=== PATIENT | male | born 1935 | race African-American/Black ===

== ENCOUNTER 2023-03-25 13:53 | Emergency (ER) | payer OTHER, MEDICAID ==
[~2023-03-25] VITALS: Ht 172.7 cm; Wt 59.0 kg
[2023-03-25] MEDS ORDERED: METHYLPREDNISOLONE SOD SUCC 125MG/2ML (ACT-O-VIAL) IV STA (14:05)
[2023-03-25] MEDS ORDERED: ALBUTEROL (0.083%) 2.5MG/3ML NEB HHN STA (14:05)
[2023-03-25] MEDS ORDERED: FAMOTIDINE 20MG/2ML VIAL IV ONE (14:15)
[2023-03-25] MEDS ORDERED: SODIUM CHLORIDE 0.9% 1,000 ML IV ONE (14:15)
[2023-03-25] MEDS ORDERED: DIPHENHYDRAMINE 50MG/ML VIAL IV ONE (14:15)
[2023-03-25 15:30] LABS: BASOPHILS % 0.2 % (0.0-2.0); EOSINOPHILS % 0.3 % (0.0-5.0); HEMATOCRIT. 47.1 % (42.0-52.0); HEMOGLOBIN. 15.5 g/dL (14.0-18.0); LYMPHOCYTES % 14.8 % (20.0-50.0); MEAN CORPUSCULAR HEMOGLOBIN 30.6 pg (28.0-32.0); MEAN CORPUSCULAR HGB CONC 32.9 g/dL (31.0-37.0); MEAN CORPUSCULAR VOLUME 93.1 fL (80.0-94.0); MEAN PLATELET VOLUME 8.3 fl (7.4-10.4); MONOCYTES % 6.7 % (2.0-8.0); PLATELET 141 x1000/uL (130-400); RED BLOOD CELL COUNT 5.06 mill/uL (4.7-6.1); RED CELL DISTRIBUTION WIDTH 15.7 % (11.6-14.6); WHITE BLOOD COUNT 8.3 x1000/uL (4.5-11.0)
[2023-03-25 15:35] VITALS: PULSE 75; RESP 14; O2SAT 97
[2023-03-25 15:37] LABS: CHLORIDE 107 mEq/L (98-107); INDEX HEMOLYSI 6 (1-3); INDEX ICTERIC 1 (1-4); INDEX LIPEMIC 1 (1-3); SODIUM 137 mEq/L (136-145)
[2023-03-25 15:46] LABS: ALANINE AMINOTRANSFERASE 32 IU/L (13-61); ALBUMIN 3.3 g/dL (3.4-5.0); ASPARTATE AMINOTRANSFERASE 53 IU/L (15-37); BILIRUBIN TOTAL 0.6 mg/dL (0.1-1.0); CALCIUM 8.9 mg/dL (8.5-10.1); CARBON DIOXIDE 26 mEq/L (21-32); CREATININE 1.2 mg/dL (0.6-1.3); GLUCOSE 135 mg/dL (70-105); NT PRO B-TYPE NATRIURETIC PEP 38 pg/mL (5-125); PROTEIN TOTAL 7.3 g/dL (6.0-8.3); TROPONIN I HIGH SENSITIVITY 7 ng/L (<78); UREA NITROGEN BLOOD 13 mg/dL (7-21)
[2023-03-25 16:26] LABS: POTASSIUM 5.9 mEq/L (3.5-5.1)
[2023-03-25 17:50] LABS: INR 1.1; PROTHROMBIN TIME 11.9 sec (9.6-11.0)
[2023-03-25 20:14] LABS: CALCIUM 8.4 mg/dL (8.5-10.1); CHLORIDE 109 mEq/L (98-107); INDEX HEMOLYSI 1 (1-3); INDEX ICTERIC 1 (1-4); INDEX LIPEMIC 1 (1-3); POTASSIUM 3.8 mEq/L (3.5-5.1); SODIUM 139 mEq/L (136-145)
[2023-03-25 20:18] LABS: CARBON DIOXIDE 24 mEq/L (21-32); CREATININE 1.1 mg/dL (0.6-1.3); GLUCOSE 168 mg/dL (70-105); UREA NITROGEN BLOOD 12 mg/dL (7-21)
[2023-03-25] MEDS ORDERED: HALOPERIDOL LACTATE 5MG/ML VIAL IM ONE (22:45)
[2023-03-26 01:14] VITALS: BP 166/70; PULSE 90; RESP 22; TEMP 98.6
== END 2023-03-26 01:29 | disposition short-term general hospital (02) ==
LOC: ER 14:43 → CANBEDREQ 18:38 → ER 03-26 01:29
DX: T78.3XXA Angioneurotic edema, initial encounter (principal); F03.90 Unspecified dementia, unspecified severity, without behavioral disturbance, psychotic disturbance, mood disturbance, and anxiety; E11.9 Type 2 diabetes mellitus without complications; I10 Essential (primary) hypertension; X58.XXXA Exposure to other specified factors, initial encounter
CPT/HCPCS: 99285; 96374; 86927; 71045; 96375; 96361; 80053; 83880; 85025; 85610; 86850; 86900; 86901; 84484; 94640; 93005; 96372; 80048; 36415; J1200; J3490; J1630; J2930; J7030; 36430; P9017

== ENCOUNTER 2023-09-15 22:14 | Inpatient (IN) | payer OTHER, MEDICAID ==
[~2023-09-15] VITALS: Ht 165.1 cm; Wt 65.8 kg
[2023-09-15 23:05] LABS: BASOPHILS % 0.2 % (0.0-2.0); DIFFERENTIAL COMMENT 0; EOSINOPHILS % 0.1 % (0.0-5.0); HEMATOCRIT. 52.2 % (42.0-52.0); HEMOGLOBIN. 16.2 g/dL (14.0-18.0); LYMPHOCYTES % 11.4 % (20.0-50.0); MEAN CORPUSCULAR HEMOGLOBIN 30.1 pg (28.0-32.0); MEAN PLATELET VOLUME 10.1 fl (7.4-10.4); MONOCYTES % 8.4 % (2.0-8.0); NEUTROPHILS % 79.9 % (40.0-76.0); PLATELET 244 x1000/uL (130-400); RED BLOOD CELL COUNT 5.39 mill/uL (4.7-6.1); WHITE BLOOD COUNT 16.5 x1000/uL (4.5-11.0)
[2023-09-16 01:20] LABS: LACTIC ACID 3.1 mmol/L (0.4-2.0)
[2023-09-16] MEDS: SODIUM CHLORIDE 0.9% 500 ML IV ONE (01:26)
[2023-09-16 01:30] LABS: AMMONIA 56 uMol/L (<32)
[2023-09-16 01:40] LABS: BG BASE EXCESS -3.1 mmol/L (-2.0-2.0); BG CARBOXYHEMOGLOBIN 0.3 % (0.5-1.5); BG DEOXYHEMOGLOBIN 0.9 % (0.0-5.0); BG FRACTION INSPIRED OXYGEN 100; BG HCO3 ACT 20.8 mmol/L (22.0-26.0); BG METHEMOGLOBIN 0.5 % (0.0-1.5); BG OXYGEN SATURATION 99.1 % (92.0-98.5); BG OXYHEMOGLOBIN 98.3 % (94.0-97.0); BG PCO2 34.3 mmHg (35.0-45.0); BG PH 7.401 (7.350-7.450); BG PO2 204.6 mmHg (75.0-100.0); BG SAMPLE SITE LEFT RADIAL; BG TOTAL HEMOGLOBIN 14.8 g/dL (12.0-18.0); BG VENT MODE MASK - NRB
[2023-09-16] MEDS: VANCOMYCIN 1G PREMIX 200 ML IV NR (04:42)
[2023-09-16] MEDS: SODIUM CHLORIDE 0.9% 1,000 ML IV NR (04:42)
[2023-09-16] MEDS ORDERED: SODIUM CHLORIDE 0.9% 1,000 ML IV NR (05:45)
[2023-09-16] MEDS: PIPERACILLIN/TAZO 3.375G/50ML 50 ML IV NR (06:00)
[2023-09-16 06:29] LABS: CARBON DIOXIDE 22 mEq/L (21-32); CHLORIDE 127 mEq/L (98-107); GLUCOSE 185 mg/dL (70-105); POTASSIUM 4.8 mEq/L (3.5-5.1)
[2023-09-16 06:30] LABS: CREATININE 3.9 mg/dL (0.6-1.3)
[2023-09-16 06:31] LABS: ALBUMIN 3.9 g/dL (3.2-4.8); BILIRUBIN TOTAL 0.4 mg/dL (0.1-1.0); PROTEIN TOTAL 8.4 g/dL (6.0-8.3)
[2023-09-16 06:32] LABS: ALANINE AMINOTRANSFERASE 252 IU/L (10-49); ASPARTATE AMINOTRANSFERASE 157 IU/L (<34)
[2023-09-16 06:33] LABS: CREATINE KINASE 3875 IU/L (46-171); TROPONIN I HIGH SENSITIVITY 50 ng/L (3.0-53)
[2023-09-16 06:34] LABS: ETHANOL BLOOD < 10 mg/dL (<10); THYROID STIMULATING HORMONE 1.23 uIU/mL (0.55-4.78)
[2023-09-16 06:38] LABS: SODIUM 161 mEq/L (136-145); UREA NITROGEN BLOOD 115 mg/dL (9-23)
[2023-09-16 07:07] LABS: ACETAMINOPHEN < 2 ug/mL (10-30)
[2023-09-16] MEDS ORDERED: IPRATROPIUM/ALBUTEROL 0.5-3(2.5)MG/3ML NEB NEB PRN (08:45)
[2023-09-16] MEDS ORDERED: DOCUSATE SODIUM 100MG CAPSULE PO PRN (08:45)
[2023-09-16] MEDS ORDERED: ONDANSETRON HCL 4MG/2ML INJ IV PRN (08:45)
[2023-09-16] MEDS ORDERED: MAGNESIUM/ALUMINUM HYDROXIDE/SIMETHICONE 30ML UDC PO PRN (08:45)
[2023-09-16] MEDS ORDERED: ACETAMINOPHEN 325MG TABLET PO PRN (08:45)
[2023-09-16] MEDS ORDERED: CLONIDINE 0.1MG TABLET PO PRN (08:45)
[2023-09-16] MEDS ORDERED: ENOXAPARIN 40MG/0.4ML SYR SUBCUT SCH (08:45)
[2023-09-16] MEDS ORDERED: GUAIFENESIN 200MG/10ML SUGAR FREE UDC PO PRN (08:45)
[2023-09-16] MEDS ORDERED: SODIUM CHLORIDE 0.45% 1,000 ML IV SCH (08:45)
[2023-09-16] MEDS: DEXT 5%/0.45% NACL 1000ML 1,000 ML IV SCH (09:00)
[2023-09-16] MEDS: ENOXAPARIN 30MG/0.3ML SYR SUBCUT SCH (09:00)
[2023-09-16 10:08] LABS: CHOLESTEROL 106 mg/dL (<200); HDL CHOLESTEROL 44 mg/dL (>55); IRON 38 ug/dL (65-175); LDL CHOLESTEROL 27 mg/dL (5-100); T4 FREE 0.82 ng/dL (0.89-1.76); TOTAL IRON BINDING CAPACITY 563 ug/dl (250-425); TRIGLYCERIDE 90 mg/dL (0-150)
[2023-09-16 10:22] LABS: FOLIC ACID (FOLATE) SERUM 15.87 ng/mL (>5.38)
[2023-09-16 10:29] LABS: VITAMIN B12 SERUM > 2000 pg/mL (211-911)
[2023-09-16] MEDS ORDERED: PIPERACILLIN/TAZO 3.375G/50ML 50 ML IV SCH (14:00)
[2023-09-16] MEDS: PIPERACILLIN/TAZO 3.375G/50ML IV SCH (14:15)
[2023-09-16 14:55] VITALS: BP 118/65; PULSE 85; RESP 16; TEMP 97
[2023-09-16 14:56] VITALS: BP 118/65; PULSE 85; RESP 16; TEMP 97
[2023-09-16 16:00] VITALS: BP 113/60; PULSE 88; RESP 20; TEMP 97.4
[2023-09-16] MEDS: ACETAMINOPHEN 325MG TABLET PO PRN (19:12)
[2023-09-16] MEDS ORDERED: KETOROLAC 10MG TABLET PO NR (19:15)
[2023-09-16] MEDS ORDERED: NON FORMULARY PATIENT HOME MED XX SCH (19:15)
[2023-09-16 20:00] VITALS: BP 117/53; PULSE 66; RESP 18; TEMP 96.9
[2023-09-16] MEDS: IPRATROPIUM/ALBUTEROL 0.5-3(2.5)MG/3ML NEB HHN SCH (20:08)
[2023-09-16 20:22] VITALS: PULSE 80; RESP 20; O2SAT 99
[2023-09-16] MEDS: MELATONIN 3MG TABLET PO NR (21:13)
[2023-09-16] MEDS: LACTULOSE 20G/30ML UDC PO SCH (21:13)
[2023-09-16 22:43] LABS: CALCIUM 8.6 mg/dL (8.7-10.4); CREATINE KINASE MB FRACTION 10.9 ng/mL (0.5-3.6); CREATININE 2.9 mg/dL (0.6-1.3); POTASSIUM 4.2 mEq/L (3.5-5.1)
[2023-09-16 23:50] VITALS: PULSE 77; RESP 19; O2SAT 98
[2023-09-17] VITALS (9 sets, daily range): BP systolic 90–112; BP diastolic 38–51; PULSE 60–72; RESP 18–20; TEMP 96.8–97.4; O2SAT 100
[2023-09-17 08:10] LABS: HEMATOCRIT. 39.5 % (42.0-52.0); HEMOGLOBIN. 12.4 g/dL (14.0-18.0); MEAN CORPUSCULAR HEMOGLOBIN 30.4 pg (28.0-32.0); MEAN CORPUSCULAR HGB CONC 31.4 g/dL (31.0-37.0); MEAN CORPUSCULAR VOLUME 96.8 fL (80.0-94.0); MEAN PLATELET VOLUME 10.5 fl (7.4-10.4); PLATELET 182 x1000/uL (130-400); RED BLOOD CELL COUNT 4.08 mill/uL (4.7-6.1); RED CELL DISTRIBUTION WIDTH 15.7 % (11.6-14.6); WHITE BLOOD COUNT 12.3 x1000/uL (4.5-11.0)
[2023-09-17 08:23] LABS: DIFFERENTIAL COMMENT 1
[2023-09-17 08:56] LABS: ALANINE AMINOTRANSFERASE 191 IU/L (10-49); ALBUMIN 3.4 g/dL (3.2-4.8); ASPARTATE AMINOTRANSFERASE 139 IU/L (<34); BILIRUBIN TOTAL 0.2 mg/dL (0.1-1.0); CALCIUM 8.8 mg/dL (8.7-10.4); CARBON DIOXIDE 22 mEq/L (21-32); CHLORIDE 128 mEq/L (98-107); CREATINE KINASE 3084 IU/L (46-171); CREATINE KINASE MB FRACTION 10.3 ng/mL (0.5-3.6); CREATININE 3.1 mg/dL (0.6-1.3); GLUCOSE 236 mg/dL (70-105); PHOSPHORUS 5.5 mg/dL (2.5-4.9); POTASSIUM 5.3 mEq/L (3.5-5.1); PROTEIN TOTAL 6.8 g/dL (6.0-8.3); TROPONIN I HIGH SENSITIVITY 27 ng/L (3.0-53); UREA NITROGEN BLOOD 84 mg/dL (9-23)
[2023-09-17 09:12] LABS: SODIUM 162 mEq/L (136-145)
[2023-09-17 10:39] LABS: ANISOCYTOSIS 1+; PLATELET ESTIMATE NORMAL
[2023-09-17] MEDS: DEXT 5%/0.2% NACL 1,000 ML IV SCH (12:58)
[2023-09-17 14:42] LABS: *AMPHETAMINES SCREEN URINE NEGATIVE (NEGATIVE); *BARBITURATES SCREEN URINE NEGATIVE (NEGATIVE); *BENZODIAZEPINES SCREEN URINE NEGATIVE (NEGATIVE); *COCAINE SCREEN URINE NEGATIVE (NEGATIVE); CANNABINOID URINE SCREEN NEGATIVE (NEGATIVE); ECSTASY MDMA SCREEN URINE NEGATIVE (NEGATIVE); METHADONE URINE SCREEN Neg (NEGATIVE); OPIATES URINE SCREEN NEGATIVE (NEGATIVE); PHENCYCLIDINE URINE SCREEN NEGATIVE (NEGATIVE)
[2023-09-17 14:44] LABS: CREATININE URINE RANDOM 48.7 mg/dL
[2023-09-17] MEDS: VANCOMYCIN 750MG PREMIX 150 ML IV NR (15:05)
[2023-09-20 09:09] LABS: *CREATININE RANDOM URINE 48.8 mg/dL (Not Estab.)
[2023-09-20 14:08] LABS: MICROALBUMIN RANDOM URINE 111.8 ug/mL (Not Estab.)
== END 2023-09-17 16:50 | disposition short-term general hospital (02) | DRG 871 ==
LOC: ER 22:25 → 7WST 09-16 06:45 → EDBEDREQSVC 09-16 06:49 → EDBEDREQ 09-16 06:49 → EDBEDREQSVC 09-16 07:45
PROVIDERS: ADMIT Internal Medicine; ATTEND Internal Medicine
DX: A41.9 Sepsis, unspecified organism (principal); G92.8 Other toxic encephalopathy; J96.01 Acute respiratory failure with hypoxia; E87.0 Hyperosmolality and hypernatremia; G91.9 Hydrocephalus, unspecified; M62.82 Rhabdomyolysis; N13.6 Pyonephrosis; N17.9 Acute kidney failure, unspecified; B69.0 Cysticercosis of central nervous system; E87.20 Acidosis, unspecified; Z20.822 Contact with and (suspected) exposure to COVID-19; D64.9 Anemia, unspecified; F03.90 Unspecified dementia, unspecified severity, without behavioral disturbance, psychotic disturbance, mood disturbance, and anxiety; R74.01 Elevation of levels of liver transaminase levels; N18.9 Chronic kidney disease, unspecified; R74.8 Abnormal levels of other serum enzymes; I12.9 Hypertensive chronic kidney disease with stage 1 through stage 4 chronic kidney disease, or unspecified chronic kidney disease; E11.22 Type 2 diabetes mellitus with diabetic chronic kidney disease; E78.5 Hyperlipidemia, unspecified; J44.9 Chronic obstructive pulmonary disease, unspecified; H40.9 Unspecified glaucoma; E86.0 Dehydration; E87.5 Hyperkalemia; E87.8 Other disorders of electrolyte and fluid balance, not elsewhere classified; K56.41 Fecal impaction; N40.0 Benign prostatic hyperplasia without lower urinary tract symptoms; Z82.49 Family history of ischemic heart disease and other diseases of the circulatory system; Z79.899 Other long term (current) drug therapy
CPT/HCPCS: 36415; 36600; 71045; 71250; 74176; 76770; 80048; 80053; 80061; 80202; 80305; 80307; 80320; 80329; 82043; 82140; 82375; 82550; 82553; 82570; 82607; 82746; 82805; 83036; 83540; 83550; 83605; 83735; 83880; 83930; 83935; 84100; 84145; 84153; 84300; 84439; 84443; 84484; 85025; 87077; 87186; 87426; 93970; 94640; 99291; C1893; J1650; J2543; J3370; J7040; G0480